=== PATIENT | female | born 2000 | race Hispanic/Latino ===

== ENCOUNTER 2020-11-07 22:27 | Emergency (ER) | payer MEDICAID ==
[2020-11-08 01:20] VITALS: BP 113/54
[2020-11-08] MEDS ORDERED: MORPHINE 4 MG SYG IVP ONE (01:30)
[2020-11-08] MEDS ORDERED: ONDANSETRON 4MG INJ IVP ONE (01:30)
[2020-11-08 01:49] LABS: BASOPHILS % (AUTO) 0.5 % (0.0-5.0); EOSINOPHILS % (AUTO) 4.5 % (0.0-8.0); LYMPHOCYTES % (AUTO) 22.8 % (21.0-51.0); MEAN CORPUSCULAR HEMOGLOBIN 27.4 pg (27.0-33.0); MEAN CORPUSCULAR HGB CONC 32.7 g/dL (32.0-36.0); MEAN CORPUSCULAR VOLUME 83.7 fL (79-99); MONOCYTES % (AUTO) 4.5 % (3.0-13.0); NEUTROPHILS % (AUTO) 67.5 % (40.0-77.0); PLATELET COUNT (AUTO) 371 K/uL (130-400); RED BLOOD CELL COUNT(AUTO) 4.42 MIL/uL (4.00-5.50); RED CELL DISTRIBUTION WIDTH 14.9 % (11.0-15.5); WHITE BLOOD COUNT (AUTO) 13.1 K/uL (4.8-10.8)
[2020-11-08 01:50] LABS: APPEARANCE,URINE Clear (CLEAR); BILIRUBIN,URINE Negative (NEGATIVE); COLOR,URINE Yellow (YELLOW); GLUCOSE, URINE (UA) Negative (NEGATIVE); KETONES,URINE Negative (NEGATIVE); LEUKOCYTE ESTERASE ,URINE Negative (NEGATIVE); NITRATE,URINE Negative (NEGATIVE); OCCULT BLOOD,URINE Moderate (NEGATIVE); PROTEIN,URINE Negative (NEGATIVE); UROBILINOGEN,URINE 0.2 mg/dL (0.2-1.0)
[2020-11-08 02:01] LABS: CREATININE 0.6 mg/dL (0.5-1.5); POTASSIUM 3.8 mmol/L (3.5-5.1)
[2020-11-08 02:02] LABS: WBC,URINE 0-1 /HPF (0-1)
[2020-11-08 02:03] LABS: BACTERIA,URINE Rare /HPF (None Seen)
[2020-11-08 02:15] LABS: ALBUMIN 4.4 g/dL (3.5-5.0); BILIRUBIN,TOTAL 0.4 mg/dL (0.2-1.0); TOTAL PROTEIN, SERUM 8.7 g/dL (6.0-8.3)
[2020-11-08] MEDS ORDERED: IOHEXOL 350 MG/ML 100ML INFUS..BTL IV ONE (02:58)
[2020-11-08] MEDS ORDERED: 0.9%NACL 1000ML 1,000 ML IV ONE (05:00)
[2020-11-08] MEDS ORDERED: KETOROLAC 30MG VIAL (30MG/ML) IV ONE (05:00)
[2020-11-08] MEDS ORDERED: SIMETHICONE 80 MG TAB.CHEW PO SCH (05:00)
[2020-11-08] MEDS ORDERED: HYOSCYAMINE SULFATE 0.125 MG TAB.SUBL SL SCH (05:00)
[2020-11-08] MEDS ORDERED: HYOS-28 PO (06:25)
[2020-11-08] MEDS ORDERED: SIME80TA12 PO (06:25)
[2020-11-08 06:36] VITALS: BP 110/52
== END 2020-11-08 06:49 | disposition home or self-care (01) ==
LOC: EDH 22:27
DX: G89.18 Other acute postprocedural pain (principal); R10.2 Pelvic and perineal pain; Z79.1 Long term (current) use of non-steroidal anti-inflammatories (NSAID); Z79.899 Other long term (current) drug therapy
CPT/HCPCS: 36415; 74177; 80053; 81001; 83690; 84702; 85025; 96361; 96374; 96375; J1885; J2270; J2405; J7030; Q9967

== ENCOUNTER 2021-05-31 13:31 | Emergency (ER) | payer MEDICAID ==
[~2021-05-31] VITALS: Ht 154.9 cm; Wt 59.0 kg
[~2021-05-31 13:31] MED LIST: HYOS-28 PO; SIME80TA12 PO
[2021-05-31 14:25] LABS: BASOPHILS % (AUTO) 0.4 % (0.0-5.0); EOSINOPHILS % (AUTO) 5.9 % (0.0-8.0); HEMATOCRIT 33.1 % (36-48); LYMPHOCYTES % (AUTO) 7.3 % (21.0-51.0); MEAN CORPUSCULAR HEMOGLOBIN 26.5 pg (27.0-33.0); MEAN CORPUSCULAR HGB CONC 32.6 g/dL (32.0-36.0); MEAN CORPUSCULAR VOLUME 81.1 fL (79-99); MONOCYTES % (AUTO) 5.7 % (3.0-13.0); NEUTROPHILS % (AUTO) 80.3 % (40.0-77.0); PLATELET COUNT (AUTO) 306 K/uL (130-400); RED BLOOD CELL COUNT(AUTO) 4.08 MIL/uL (4.00-5.50); WHITE BLOOD COUNT (AUTO) 11.4 K/uL (4.8-10.8)
[2021-05-31 14:28] LABS: APPEARANCE,URINE Cloudy (CLEAR); BILIRUBIN,URINE Negative (NEGATIVE); COLOR,URINE Yellow (YELLOW); GLUCOSE, URINE (UA) Negative (NEGATIVE); KETONES,URINE Trace mg/dL (NEGATIVE); LEUKOCYTE ESTERASE ,URINE Moderate (NEGATIVE); NITRATE,URINE Negative (NEGATIVE); OCCULT BLOOD,URINE Negative (NEGATIVE); PH,URINE 5.5 (5.0-8.0); PROTEIN,URINE Negative (NEGATIVE)
[2021-05-31 14:30] LABS: HCG,QUAL RESULT POSITIVE (NEGATIVE)
[2021-05-31 14:37] LABS: CREATININE 0.5 mg/dL (0.5-1.5); POTASSIUM 3.8 mmol/L (3.5-5.1)
[2021-05-31 14:41] LABS: ALBUMIN 3.2 g/dL (3.5-5.0); BILIRUBIN,TOTAL 0.3 mg/dL (0.2-1.0); TOTAL PROTEIN, SERUM 7.7 g/dL (6.0-8.3)
[2021-05-31 14:52] LABS: BACTERIA,URINE Few /HPF (None Seen); MUCUS,URINE Few LPF (None Seen); RBC,URINE 0-1 /HPF (0-1); SQUAMOUS EPITHELIAL CELL,UR Many /HPF (0-2)
[2021-05-31 15:22] VITALS: BP 124/62
[2021-05-31] MEDS ORDERED: ACET-66 PO (15:48)
== END 2021-05-31 16:01 | disposition home or self-care (01) ==
LOC: EDH 13:31
DX: O99.512 Diseases of the respiratory system complicating pregnancy, second trimester (principal); J02.9 Acute pharyngitis, unspecified; R09.89 Other specified symptoms and signs involving the circulatory and respiratory systems; Z20.822 Contact with and (suspected) exposure to COVID-19; Z3A.18 18 weeks gestation of pregnancy
CPT/HCPCS: 36415; 80053; 81001; 81025; 82150; 83690; 85025; 87088; 87635; 87804 ×2; 99283; C9803

== ENCOUNTER 2022-10-21 16:30 | Observation (INO) | payer MEDICAID ==
[~2022-10-21 16:30] MED LIST changes: +ACET-66 PO
[2022-10-21 17:12] LABS: APPEARANCE,URINE CLOUDY (CLEAR); BILIRUBIN,URINE NEGATIVE (NEGATIVE); COLOR,URINE LIGHT-YELLOW (YELLOW); GLUCOSE, URINE (UA) NEGATIVE (NEGATIVE); KETONES,URINE NEGATIVE (NEGATIVE); LEUKOCYTE ESTERASE ,URINE 500 Leu/uL (NEGATIVE); NITRATE,URINE NEGATIVE (NEGATIVE); OCCULT BLOOD,URINE NEGATIVE (NEGATIVE); PH,URINE 6.5 (5.0-8.0); PROTEIN,URINE NEGATIVE (NEGATIVE); UROBILINOGEN,URINE 0.2 mg/dL (0.2-1.0)
[2022-10-21 17:34] LABS: ADD UA MICROSCOPIC YES
[2022-10-21 17:37] LABS: BACTERIA,URINE FEW /HPF (None Seen); MUCUS,URINE FEW LPF (None Seen); SQUAMOUS EPITHELIAL CELL,UR MANY /HPF (0-2)
== END 2022-10-21 18:04 | disposition home or self-care (01) ==
LOC: LDH 16:30
PROVIDERS: ADMIT Obstetrics & Gynecology; ATTEND Obstetrics & Gynecology
DX: O26.893 Other specified pregnancy related conditions, third trimester (principal); R10.9 Unspecified abdominal pain; R10.2 Pelvic and perineal pain; O99.891 Other specified diseases and conditions complicating pregnancy; M54.50 Low back pain, unspecified; Z3A.35 35 weeks gestation of pregnancy
CPT/HCPCS: 87088; 81001; G0378 ×2

== ENCOUNTER 2022-11-07 17:40 | Observation (INO) | payer MEDICAID ==
[~2022-11-07] VITALS: Ht 152.4 cm; Wt 72.6 kg
[2022-11-07 17:40] VITALS: BP 129/63; PULSE 89; RESP 16
[2022-11-07 18:21] LABS: APPEARANCE,URINE CLEAR (CLEAR); BILIRUBIN,URINE NEGATIVE (NEGATIVE); COLOR,URINE LIGHT-YELLOW (YELLOW); GLUCOSE, URINE (UA) NEGATIVE (NEGATIVE); KETONES,URINE NEGATIVE (NEGATIVE); LEUKOCYTE ESTERASE ,URINE 500 Leu/uL (NEGATIVE); NITRATE,URINE NEGATIVE (NEGATIVE); OCCULT BLOOD,URINE NEGATIVE (NEGATIVE); PROTEIN,URINE NEGATIVE (NEGATIVE); UROBILINOGEN,URINE 0.2 mg/dL (0.2-1.0)
[2022-11-07 18:26] LABS: ADD UA MICROSCOPIC YES
[2022-11-07 18:28] LABS: BACTERIA,URINE RARE /HPF (None Seen); MUCUS,URINE RARE LPF (None Seen); RBC,URINE 0-1 /HPF (0-1); SQUAMOUS EPITHELIAL CELL,UR FEW /HPF (0-2)
[2022-11-12] MEDS ORDERED: IBUP-2077 PO (14:03)
[2022-11-12] MEDS ORDERED: DOCU-116 PO (14:04)
== END 2022-11-07 18:55 | disposition home or self-care (01) ==
LOC: EDH 17:40 → LDH 17:41
PROVIDERS: ADMIT Obstetrics & Gynecology; ATTEND Obstetrics & Gynecology
DX: O26.893 Other specified pregnancy related conditions, third trimester (principal); R10.30 Lower abdominal pain, unspecified; Z3A.38 38 weeks gestation of pregnancy
CPT/HCPCS: 59025; 87088; 81001; G0378; G0379